=== PATIENT | female | born 1970 | race Caucasian/White ===

== ENCOUNTER 2016-07-28 03:01 | Day surgery (SDC) | payer OTHER ==
[2016-07-28] MEDS ORDERED: NS 0.9% 1000 ML* 1,000 ML IV ONE (04:12)
[2016-07-28 04:53] LABS: Hematocrit 49 % (35-47); Mean Corpuscular HGB Conc 33 g/dl (31-36); Mean Corpuscular Hemoglobin 29 pg (27-31); Mean Corpuscular Volume 90 fL (80-97); Mean Platelet Volume 8 um3 (7.4-10.4); Red Blood Count 5.43 10^6/ul (4.0-5.4); Red Cell Distribution Width 14 % (10.5-15)
[2016-07-28 04:55] LABS: Albumin 4.4 g/dL (3.2-5.2); BUN/Creatinine Ratio 13.7 (8-20); Calcium 9.2 mg/dL (8.6-10.3); EGFR African American 109.9 (>60); EGFR Non-African American 85.5 (>60); Potassium 3.8 mmol/L (3.5-5.0); Total Bilirubin 0.4 mg/dL (0.2-1.0); Total Protein 7.4 g/dL (6.4-8.9)
[2016-07-28 04:57] LABS: Troponin I 0.01 ng/mL (<0.04)
[2016-07-28] MEDS ORDERED: Piperac/Tazob 3.375 gm in NS* 3.375 GM/100 ML BAG IVPB ONE (06:18)
--- NOTE | 2016-07-28 07:00 | ED ---
Rylee Torres Rebecca, scribed for Dee DeeQuique on 07/28/16 at 0415 . HPI Chest Pain - HPI Summary HPI Summary: Pt is a 45 y/o F who presents to ED c/o CP. Pain began suddenly at 0000 and has been constant since onset. Pain is right anterior and midsternal with radiation to the back. Pain characterized as severe tightness, ranked 8/10. Sx aggravated and alleviated by nothing. Additionally c/o N/V. Denies dizziness and SOB. SHx current smoker. - History of Current Complaint Chief Complaint: EDChestPainROMI Time Seen by Provider: 07/28/16 04:09 Hx Obtained From: Patient Onset/Duration: Started Hours Ago, Still Present Time of Onset: 00:00 Timing: Constant Initial Severity: Severe Current Severity: Severe Pain Intensity: 8 Pain Scale Used: 0-10 Numeric Chest Pain Location: Mid Sternal, Right Anterior Chest Pain Radiates: Yes Chest Pain Radiates To:: Back Character: Tightness Aggravating Factor(s): Nothing Alleviating Factor(s): Nothing Associated Signs and Symptoms: Positive: Nausea, Vomiting. Negative: Dizziness , Shortness of Breath - Allergy/Home Medications Allergies/Adverse Reactions: Allergies Allergy/AdvReac Type Severity Reaction Status Date / Time No Known Allergies Allergy Verified 07/28/16 05:05 PMH/Surg Hx/FS Hx/Imm Hx Endocrine/Hematology History: Reports: Hx Thyroid Disease Musculoskeletal History: Reports: Hx Orthopedic Injury - wrist a - Surgical History Surgery Procedure, Year, and Place: Thyroidectomy Infectious Disease History: No Infectious Disease History: Denies: Traveled Outside the [place] in Last 30 Days - Family History Known Family History: Positive: Cardiac Disease, Other - FHx Ovarian CA and Crohn's Disease - Social History Alcohol Use: Occasionally Substance Use Type: Reports: None Smoking Status (MU): Light Every Day Tobacco Smoker Review of Systems Positive: Chest Pain Negative: Shortness Of Breath Positive: Vomiting, Nausea Neurological: Other - Denies dizziness All Other Systems Reviewed And Are Negative: Yes Physical Exam Triage Information Reviewed: Yes Vital Signs Reviewed: Yes Appearance: Positive: Well-Appearing, No Pain Distress Skin: Positive: Warm, Skin Color Reflects Adequate Perfusion, Dry Eyes: Positive: EOMI, LEXY Respiratory/Lung Sounds: Positive: Clear to Auscultation, Breath Sounds Present Cardiovascular: Positive: RRR, Pulses are Symmetrical in both Upper and Lower Extremities Abdomen Description: Positive: Soft. Negative: Nontender - Tenderness in the RUQ and epigastric regions Bowel Sounds: Positive: Present Musculoskeletal: Positive: Normal, Strength/ROM Intact Neurological: Positive: Normal, Sensory/Motor Intact, Alert, Oriented to Person Place, Time Diagnostics - Laboratory Result Diagrams: 07/28/16 04:30 07/28/16 04:30 Lab Statement: Any lab studies that have been ordered have been reviewed, and results considered in the medical decision making process. - Radiology CXR Xray Interpretation: No Acute Changes Radiology Interpretation Completed By: ED Physician - Ultrasound No standard instances Ultrasound Interpretation Completed By: Radiologist - Gallbladder US: Nonmobile stone gallbladder neck. Small pericholecystic fluid, positive sonographic Sanchez 's sign and top normal gallbladder wall thickness, possibly early acute cholecystitis. Further evaluation with HIDA scan may be helpful. Hepatomegaly. Unremarkable right kidney and visualized pancreas. Borderline extrahepatic biliary dilatation, common duct 7 mm. - EKG 0458 Cardiac Rate: NL - 64 bpm EKG Rhythm: Sinus Rhythm EKG Interpretation: no acute changes Chest Pain Course/Dx - Course Assessment/Plan: Came to the ED with abdominal pain. Labs, US show a stone at the gallbladder neck with inflammation of the gallbladder. Dr. Grace will evaluate pt in the ED. Dx acute cholecystitis, gallstones. Pt will be signed out to Dr. Lomas. - Diagnoses Provider Diagnoses: Acute cholecystitis, Gallstones - Provider Notifications Discussed Care Of Patient With: Dr. Grace, surgeon, who will evaluate pt in the ED. Time Discussed With Above Provider: 06:17 Discharge - Discharge Plan Condition: Stable Disposition: OTHER Discharge Disposition Comment: Pt will be signed out to Dr. Lomas, pending Dr. Grace consult Referrals: Austyn Bella MD [Primary Care Provider] - The documentation as recorded by the Rylee peck Rebecca accurately reflects the service I personally performed and the decisions made by , Quique Funez.
[2016-07-28] MEDS ORDERED: Ondansetron INJ* 2 MG/ML VIAL ONE (09:05)
[2016-07-28] MEDS ORDERED: Propofol* 10 MG/ML 20 ML BTL IV PUSH ONE (09:05)
[2016-07-28] MEDS ORDERED: Cisatracurium* 2 MG/ML MDV 5 ML ONE (09:05)
[2016-07-28] MEDS ORDERED: Famotidine IV* 10 MG/ML 2 ML (20 mg) ONE (09:05)
[2016-07-28] MEDS ORDERED: KETAMINE HCL* 50 MG/ML 10 ML VIAL ONE (09:05)
[2016-07-28] MEDS ORDERED: Midazolam* 1 MG/ML 5 ML VIAL (5 MG) ONE (09:05)
[2016-07-28] MEDS ORDERED: Lidocaine 2% PF * 5 ML VIAL ONE (09:05)
[2016-07-28] MEDS ORDERED: fentaNYL* 50 MCG/ML 5 ML VIAL (250 MCG VIAL) ONE (09:05)
[2016-07-28] MEDS ORDERED: Dexamethasone IV* 4 MG/ML 1 ML (4 MG) ONE (09:05)
[2016-07-28] MEDS ORDERED: ceFAZolin 2 GM PREMIX(*) 2 GM/50 ML BAG IVPB ONE (09:27)
[2016-07-28] MEDS ORDERED: Ondansetron INJ* 2 MG/ML VIAL IV PRN ×2 (09:35→11:54)
[2016-07-28] MEDS ORDERED: oxyCODONE/Acetamin 5/325 MG* TAB PO PRN (09:35)
[2016-07-28] MEDS ORDERED: Bupivacaine 0.25% EPI 200,000* 30 ML SDV ONE (10:26)
[2016-07-28] MEDS ORDERED: EPHEDrine (Pressors)* 50 MG/ML VIAL ONE (11:30)
[2016-07-28] MEDS ORDERED: Glycopyrrolate IV* 0.2 MG/ML 1 ML VIAL ONE (11:30)
[2016-07-28] MEDS ORDERED: Neostigmine Methylsulfate* 2 MG/2 ML SYRINGE ONE (11:30)
[2016-07-28] MEDS ORDERED: fentaNYL* 50 MCG/ML 2 ML VIAL (100 MCG VIAL) IV PRN (11:54)
[2016-07-28] MEDS ORDERED: Ketorolac INJ* 15 MG/ML 1 ML VIAL IV PUSH ONE (11:54)
[2016-07-28] MEDS ORDERED: Ketorolac INJ* 30 MG/ML 1 ML VIAL ONE (12:02)
--- NOTE | 2016-07-28 12:31 | HP ---
HISTORY AND PHYSICAL ADMISSION: DATE OF ADMISSION: 07/28/16 REASON FOR ADMISSION: Epigastric and right upper quadrant abdominal pain radiating through to the back. HISTORY OF PRESENT ILLNESS: Ms. Eliza Nieves is a 45-year-old woman , who is obese, who ate a light dinner last night, woke up around midnight with severe epigastric pain radiating into her arms to the side of her abdomen, into the mid back area. This was not associated with shortness of breath. There was a mild nausea without vomiting. There were no fevers, shakes, or chills. She had no diarrhea or lower abdominal discomfort. The pain persisted, she presented to the emergency room earlier this morning. She was noted to be afebrile with stable vital signs. EKG was unremarkable and as well as a normal troponin. She had a white blood cell count noted to be 11, 000. Liver transaminases and bilirubin were normal. Lipase was also normal. An HCG test was negative. Lactic acid 1.4. She was noted to have exquisite tenderness in the epigastric and right upper quadrant. She underwent an ultrasound of her gallbladder. I did review the study. It shows what appears to be a gallstone, nonmobile, at the neck of the gallbladder with small amount of pericholecystic fluid. The gallbladder wall appeared to be of normal wall thickness. There was no ductal dilation. Surgical consultation was obtained. PAST MEDICAL HISTORY: Hypothyroidism. PAST SURGICAL HISTORY: 1. Total thyroidectomy. 2. Bladder suspension. MEDICATIONS: Includes Synthroid daily. ALLERGIES: She has no known drug allergies. SOCIAL HISTORY: She is , has two children. 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 She smokes about 1 pack of cigarettes per day. Drinks alcohol on a very rare social basis. Denies illicit drug abuse. REVIEW OF SYSTEMS: Cardiovascular: She has no coronary artery disease history , chest pain or shortness of breath. Pulmonary: No wheezing or hemoptysis. GI : She has not had symptoms of gallbladder disease including right upper quadrant pain, intolerance to fatty foods or recurrent episodes of similar discomfort. : No urgency or hematuria. PHYSICAL EXAMINATION GENERAL: She is an overweight female, appears to be somewhat uncomfortable. She is awake, alert and conversive; however, quite pleasant. VITAL SIGNS: Temperature 98.5, pulse 78, blood pressure 131/90, respirations 18. HEENT: Sclerae are anicteric. Oral mucosa is slightly dry. Trachea is midline. LUNGS: Clear to auscultation with normal respiratory effort. HEART: Regular rate and rhythm without murmurs, rubs or gallops. ABDOMEN: Soft and slightly distended. She had diminished bowel sounds throughout. There is no prior surgical incisions or hernias. No umbilical hernia noted. She has tenderness in the epigastric and right upper quadrant with some voluntary guarding. No generalized abdominal discomfort or peritoneal irritation. PSYCHIATRIC: She is awake, alert and oriented x3. She has normal judgment and insight. IMPRESSION: Epigastric and right upper quadrant abdominal pain with a gallstone noted on ultrasound with a positive Sanchez sign and a physical exam with exquisite tenderness in the right upper quadrant, all consistent with early acute calculus cholecystitis. PLAN: I discussed options with Ms. Guero Nieves here in the emergency room. She is quite tender and her pain is not improved with analgesia and although she has no fever, she has a mild elevation in the white blood cell count. She is anorexic, had some nausea. I do not believe that she would be a candidate for discharge with oral antibiotics and an outpatient followup. In light of the severity of her discomfort that has persisted and the findings on ultrasound of what appears to be a nonmobile stone in the neck of the gallbladder, I suspect that this will require surgical intervention. I would recommend that we proceed with a laparoscopic cholecystectomy today rather than try to temporize with nonoperative means at this point. After our discussion including the procedure and recovery time, she would like to proceed with a cholecystectomy. The procedure was discussed with her and the risks are but not limited to bleeding, infection, intraabdominal abscess formation, injury to peritoneal and retroperitoneal structures, injury to common bile duct requiring further reconstruction, possibility of an open procedure, risk of anesthesia, deep vein thrombosis and embolism were all explained. In addition, the possible hospital stay, recovery times from her job and activity restrictions were all explained. In addition, I discussed that depending on operative times today and availability that it may be me or another partner within [facility] and she is comfortable with this and we will proceed with the surgery today depending on operating time availability. CC: [facility]; Dr. Austyn Bella in [place] * [id number]/[facility] #: [id number] [facility]
--- NOTE | 2016-07-28 12:55 | RAD ---
INDICATION: Chest pain radiating to back COMPARISON: Chest x-ray dated April 23, 2003 TECHNIQUE: PA and lateral views of the chest were obtained. FINDINGS: The heart and mediastinum are normal in size and contour. There is mild peribronchial cuffing depicted best on the lateral view chest x-ray. The lungs are grossly clear. There is no evidence of large pleural effusion. Visualized bones are normal for the patient's age. There is no radiographic evidence of free air beneath the diaphragm IMPRESSION: MILD PERIBRONCHIAL CUFFING COULD BE SEEN IN THE SETTING OF BRONCHITIS/INFLAMMATORY LUNG DISEASE IN THIS OTHERWISE NONACUTE CHEST X-RAY.
--- NOTE | 2016-07-28 13:20 | RAD ---
HISTORY: Chest and right upper quadrant pain COMPARISONS: None TECHNIQUE: Multiple transverse and longitudinal ultrasound images were obtained of the right upper quadrant. FINDINGS: LIVER: The liver is normal in dimensions and echogenicity. Normal hepatic and portal venous blood flow is duplicated with color flow imaging. There is no gross intrahepatic biliary duct dilatation. GALLBLADDER AND EXTRAHEPATIC BILIARY DUCT: There is at least one shadowing echogenic stone in the dependent portion of the gallbladder. The gallbladder wall measures up to 3 mm in thickness. There is a small amount of pericholecystic fluid. The fuel handler reports a positive sonographic Sanchez's sign. The common bile duct measures a maximum diameter of 7 mm. PANCREAS: The portions of the pancreas not obscured by bowel gas are normal in appearance. RIGHT KIDNEY: The right kidney is normal in size, morphology and echogenicity. AORTA AND IVC: The visualized portions are normal in appearance and not pathologically dilated. IMPRESSION: THE CT FINDINGS ARE CONSISTENT WITH CHOLELITHIASIS POSSIBLY WITH OBSTRUCTIVE CHOLECYSTITIS. IF CLINICALLY WARRANTED FURTHER CHARACTERIZATION CAN BE MADE WITH HIDA SCAN.
[2016-07-28] MEDS ORDERED: oxyCODONE/Acetamin 5/325 MG* TAB ONE (13:26)
[2016-07-28 13:47] VITALS: BP 106/73
--- NOTE | 2016-07-29 03:07 | OP ---
CC: Anders Crooks MD; Dr. Austyn Bella OPERATIVE REPORT: DATE OF OPERATION: 07/28/16 DATE OF : 66 SURGEON: Anders Crooks MD CROP [employer]IVEST[employer] TENANT FARMER: Joni Grace MD ANESTHESIOLOGIST: Dr. Llamas. ANESTHESIA: General anesthetic, local infiltration. PRE-OP DIAGNOSIS: Cholecystitis. POST-OP DIAGNOSIS: Cholecystitis. OPERATIVE PROCEDURE: Laparoscopic cholecystectomy. COMPLICATIONS: No complications. DRAINS: No drains. PATHOLOGIC SPECIMEN: Gallbladder. COUNTS: Sponge and instrument counts correct. ESTIMATED BLOOD LOSS: 30 mL. DESCRIPTION OF PROCEDURE: The patient was supine on the operative table after adequate general anes thetic, compression, stockings, Catracho Hugger warmer, and intravenous antibiotics; the abdomen was pre pped with antiseptic, draped in a sterile fashion. Local infiltrative anesthesia was carried out in the right upper quadrant. A small incision was created and 5 mm blunt port cannula was placed unde r direct vision into the peritoneal space. Insufflation was carried with carbon dioxide. Additiona l cannula 5 mm supraumbilical and right anterior axillary line 12 mm subxiphoid were placed through small stab wounds under direct vision. The gallbladder had some acute inflammatory changes, but no p urulence, no gangrene, and no perforation. The areolar tissue was taken down with the cystic duct a nd cystic artery, which were readily identified, clipped and divided, and the gallbladder was taken off the liver bed using electrocautery. It was somewhat inflammatory. The plain was a little diffi cult, but not too bad. There was a little bit of bile spillage, but no stone spillage. The gallbla dder was placed in the retrieval bag and brought out through the subxiphoid site without difficulty. The operative field was irrigated with warm saline solution. Free fluid was suctioned out. Hemost asis was ensured using electrocautery. Suctioning and irrigation was again carried out. The cannul a were removed after evacuation of the pneumoperitoneum and the incisions were closed with 5-0 Vicry l followed by Steri- Strips. She tolerated the procedure well and she was brought to recovery room in good condition. [id number]/[facility] #: [id number]
[2016-07-29] MEDS ORDERED: Levothyroxine TAB* 100 MCG TAB PO SCH (06:00)
== END 2016-07-28 08:50 | disposition home or self-care (01) ==
LOC: ED 03:01 → OR 08:50
PROVIDERS: ATTEND Surgery
DX: K80.10 Calculus of gallbladder with chronic cholecystitis without obstruction (principal); K82.8 Other specified diseases of gallbladder; E89.0 Postprocedural hypothyroidism; F17.210 Nicotine dependence, cigarettes, uncomplicated
CPT/HCPCS: 36415; 71020; 76705; 80053; 83605; 83690; 84484; 84702; 85025; 85610; 85730; 88304; 93005; A9270-GY; J0690; J1100; J1885; J2250; J2405; J2543; J2704; J3010

== ENCOUNTER 2016-09-09 05:37 | Emergency (ER) | payer OTHER ==
[2016-09-09] MEDS ORDERED: Ibuprofen TAB* 400 MG PO ONE (06:04)
[2016-09-09] MEDS ORDERED: HYDROcodone/ACETAMIN 5-325 MG* 1 TAB PO ONE (06:05)
[2016-09-09 06:27] VITALS: BP 118/66
--- NOTE | 2016-09-09 09:23 | RAD ---
INDICATION: Right knee pain after a fall playing softball COMPARISON: Most recent comparison radiograph is dated June 02, 2015 TECHNIQUE: 4 view radiograph of the right knee. FINDINGS: The visualized bones are well-corticated and properly aligned. Degenerative changes include narrowing of the medial greater than lateral compartments of the knee with lateral greater than medial marginal osteophyte formation. There is mild narrowing of the patellofemoral joint with a superior pole marginal osteophyte. On the sunrise view of the knee the patella exhibits a small degree of lateral displacement relative to the intercondylar groove of the femur. On the lateral view image there is a moderate size joint effusion. IMPRESSION: 1. Interval appearance of lateral subluxation of the patella on the sunrise view of the knee relative to the previous radiograph as well as a moderate size joint effusion. 2. Additional chronic and degenerative changes similar in appearance to the previous knee x-ray. If the patient's symptoms persist, follow-up imaging is recommended.
--- NOTE | 2016-09-17 19:37 | ED ---
Demarcus Torres Aidan, scribed for Ashly Silva MD on 09/09/16 at 0618 . Lower Extremity - HPI Summary HPI Summary: 46 y/o female presents to the ED with a complaint of acute, constant, moderate- to-severe (8/10) RLE pain with associated swelling over the knee. Sx began at 1400 yesterday after the patient slipped on home plate and landed on her knee while playing softball. At 2000 last night, she took narcotics which slightly alleviated her pain. - History of Current Complaint Chief Complaint: EDExtremityLower Stated Complaint: RT KNEE INJURY Time Seen by Provider: 09/09/16 05:41 Hx Obtained From: Patient Hx Last Menstrual Period: unknown Mechanism Of Injury: Direct Blow - Pt slipped on a baseball base and hit her knee Onset of Pain: Immediate Onset/Duration: Hours Severity Initially: Moderate Severity Currently: Moderate Pain Intensity: 8 Pain Scale Used: 0-10 Numeric Timing: Constant Location: Is Discrete @ - RLE Character Of Pain: Sharp Associated Signs And Symptoms: Positive: Swelling Aggravating Factor(s): Other - unknown Alleviating Factor(s): Other - narcotics Able to Bear Weight: Yes - Risk Factors Gout Risk Factors: Age Over 40 DVT Risk Factors: Smoking - Allergies/Home Medications Allergies/Adverse Reactions: Allergies Allergy/AdvReac Type Severity Reaction Status Date / Time No Known Allergies Allergy Verified 07/28/16 05:05 PMH/Surg Hx/FS Hx/Imm Hx Endocrine/Hematology History: Reports: Hx Thyroid Disease Musculoskeletal History: Reports: Hx Orthopedic Injury - wrist a - Surgical History Surgery Procedure, Year, and Place: Thyroidectomy Infectious Disease History: No Infectious Disease History: Denies: Traveled Outside the [place] in Last 30 Days - Family History Known Family History: Positive: Unknown, Cardiac Disease, Other - FHx Ovarian CA and Crohn's Disease Family History: FHx of Ovarian CA. FHx of Crohn's disease - Social History Occupation: Employed Full-time Lives: With Family Alcohol Use: Occasionally Substance Use Type: Reports: None Smoking Status (MU): Light Every Day Tobacco Smoker Review of Systems Constitutional: Negative Eyes: Negative ENT: Negative Cardiovascular: Negative Respiratory: Negative Gastrointestinal: Negative Genitourinary: Negative Positive: Arthralgia - RLE pain with associated swelling over the right knee. Negative: Myalgia, Decreased ROM, Edema Skin: Negative Neurological: Negative Psychological: Normal All Other Systems Reviewed And Are Negative: Yes Physical Exam - Summary Physical Exam Summary: General: Well appearing, no pain distress Skin: Warm, Skin Color Reflects Adequate Perfusion, Dry Eyes: EOMI, LEXY ENT: Pharynx normal, TMs normal Neck: Supple, nontender Respiratory: CTA, breath sounds present, no rhonchi, no wheezes, no rales Cardiovascular: RRR, no murmur, no rub, no gallop Abdomen: Soft, nontender, Non-distended, no guarding, no rebound Bowel: Present Musculoskeletal: ZE, No edema, effusion over right knee Neuro: Sensory/motor intact, A&Ox3, CN intact 2-12 Psych: Affect/mood appropriate Triage Information Reviewed: Yes Vital Signs On Initial Exam: Initial Vitals Temp Pulse Resp BP Pulse Ox 99.0 F 92 19 122/74 96 09/09/16 05:45 09/09/16 05:45 09/09/16 05:45 09/09/16 05:45 09/09/16 05:45 Vital Signs Reviewed: Yes - [place] Coma Scale Coma Scale Total: 15 Diagnostics - Vital Signs Vital Signs Temp Pulse Resp BP Pulse Ox 09/09/16 05:45 99.0 F 92 19 122/74 96 - Laboratory Lab Statement: Any lab studies that have been ordered have been reviewed, and results considered in the medical decision making process. - Radiology RIGHT KNEE X-RAY Xray Interpretation: No Acute Changes - IMPRESSION: Negative image Radiology Interpretation Completed By: ED Physician - Dr. Silva Lower Extremity Course/Dx - Diagnoses Provider Diagnoses: ACL sprain Discharge - Discharge Plan Condition: Stable Disposition: HOME Discharge Disposition Comment: Please follow up with orthopedics within 3 days. Prescriptions: HYDROcodone/ACETAMIN 5-325 MG* [[place] 5-325 TAB*] 1 tab PO Q8H PRN #10 tab MDD 3 PRN Reason: Pain Patient Education Materials: ACL Injury (ED) Forms: *Work Release Referrals: Austyn Bella MD [Primary Care Provider] - Austyn Whitehead MD [Medical Doctor] - The documentation as recorded by the Demarcus peck Aidan accurately reflects the service I personally performed and the decisions made by , Ashly Silva MD.
== END 2016-09-09 06:27 | disposition home or self-care (01) ==
LOC: ED 05:37
DX: S83.91XA Sprain of unspecified site of right knee, initial encounter (principal); X58.XXXA Exposure to other specified factors, initial encounter; Y93.9 Activity, unspecified; Y92.9 Unspecified place or not applicable; Y99.9 Unspecified external cause status; F17.210 Nicotine dependence, cigarettes, uncomplicated
CPT/HCPCS: 99282; A9270-GY